=== PATIENT | female | born 1960 | race American Indian/Alaskan Native ===

== ENCOUNTER 2017-01-27 10:51 | Inpatient (IN) | payer MEDICARE ==
[2017-01-27 11:35] LABS: Basophils % (Auto) 0.9 % (0.0-1.8); Eosinophils % (Auto) 2.9 % (0.0-4.3); Hematocrit 37.8 % (30.3-42.9); Hemoglobin 12.5 gm/dl (10.1-14.3); Mean Corpuscular HGB Conc 33 % (30-34); Mean Corpuscular Hemoglobin 28 pg (28-32); Mean Corpuscular Volume 85 fl (79-97); Platelet Count 163 K/mm3 (140-440); Red Blood Count 4.47 M/mm3 (3.65-5.03); Red Cell Distribution Width 12.9 % (13.2-15.2); White Blood Count 5.6 K/mm3 (4.5-11.0)
[2017-01-27 11:50] LABS: Anion Gap 16 mmol/L; BUN/Creatinine Ratio 17.14; Blood Urea Nitrogen 12 mg/dL (7-17); Calcium 9.1 mg/dL (8.4-10.2); Carbon Dioxide 26 mmol/L (22-30); Chloride 105.7 mmol/L (98-107); Glucose 80 mg/dL (65-100); Potassium 3.6 mmol/L (3.6-5.0); Sodium 144 mmol/L (137-145)
[2017-01-27 12:02] LABS: Bacteria,Urine 1+ /HPF (Negative); Bilirubin,Urine NEG (Negative); Blood,Urine LG (Negative); Ketones,Urine NEG (Negative); Leukocyte Esterase,Urine LG (Negative); Mucus,Urine FEW /HPF; Nitrite,Urine NEG (Negative); Urobilinogen,Urine < 2.0 mg/dL (<2.0)
[2017-01-27 12:05] LABS: RBC,Urine > 182.0 /HPF (0.0-6.0); WBC,Urine > 182.0 /HPF (0.0-6.0)
--- NOTE | 2017-01-27 15:00 | Emergency Department Report ---
ED General Adult HPI - General Chief complaint: Chest Pain Stated complaint: CHEST PAIN / BLOOD IN URINE / Time Seen by Provider: 01/27/17 12:49 Source: patient Mode of arrival: Ambulatory Limitations: No Limitations - History of Present Illness Initial comments: According to the triage note the patient has chest pain shortness breath sweats and nausea. She's had symptoms intermittently for one week according to triage. Actually she states that she's had symptoms longer. This morning she had an episode lasting for greater than 1 hour which was pressure-like associated with right arm numbness. Patient states that she not unusually has arm numbness associated with chest pain. She states that she has 2 brothers that had coronary artery disease. She smokes "[employer]". He does not admit any substance abuse. She states that she has never been worked up for coronary artery disease or admitted for chest pain. -: week(s), month(s) Location: chest Radiation: other (associated with right arm numbness) Quality: other (tightness) Consistency: now resolved Improves with: none Worsens with: none Associated Symptoms: nausea/vomiting, shortness of breath - Related Data Previous Rx's Medication Instructions Recorded Last Taken Type Amoxicillin/K Clav Tab [Augmentin] 875 tab PO BID #20 tablet 07/16/13 06/29/13 Rx Fluticasone Propionate [Flonase] 2 spray NS QDAY #1 spray.susp 07/16/13 Rx Hydrocodone Bit/Acetaminophen 1 each PO Q6HR #15 tablet 07/16/13 06/29/13 Rx [Lortab 5-500 Tablet] Loratadine [Claritin] 10 mg PO DAILY #30 tablet 07/16/13 06/29/13 Rx Prednisone 40 mg PO QDAY #10 tablet 07/16/13 06/29/13 Rx Azithromycin [Zithromax Z-PENNIE] 250 mg PO DAILY #6 tablet 01/19/14 Unknown Rx HYDROcodone/APAP 5-325 [[place] 1 each PO Q6HR PRN #10 tablet 01/19/14 Unknown Rx 5/325 mg] HYDROcodone/APAP 5-325 [[place] 1 each PO Q6HR PRN #20 tablet 03/26/14 Unknown Rx 5/325 mg] Sulfamethoxazole/Trimethoprim 1 each PO BID #10 tablet 10/26/16 Unknown Rx [Bactrim DS TAB] traMADol [Ultram] 50 mg PO Q6HR PRN #14 tablet 08/23/16 Unknown Rx Allergies Allergy/AdvReac Type Severity Reaction Status Date / Time No Known Allergies Allergy Verified 03/26/14 12:35 ED Review of Systems ROS: Stated complaint: CHEST PAIN / BLOOD IN URINE / Other details as noted in HPI Constitutional: denies: chills, fever Eyes: denies: eye pain, eye discharge, vision change ENT: denies: ear pain, throat pain Respiratory: shortness of breath. denies: cough, wheezing Cardiovascular: chest pain. denies: palpitations Endocrine: no symptoms reported Gastrointestinal: denies: abdominal pain, nausea, diarrhea Genitourinary: dysuria, hematuria. denies: urgency, discharge Musculoskeletal: denies: back pain, joint swelling, arthralgia Skin: denies: rash, lesions Neurological: denies: headache, weakness, paresthesias Psychiatric: denies: anxiety, depression Hematological/Lymphatic: denies: easy bleeding, easy bruising ED Past Medical Hx - Past Medical History Previous Medical History?: Yes Hx Psychiatric Treatment: Yes Additional medical history: PTSD. depression. schizophrenia. UTI - Surgical History Past Surgical History?: Yes Additional Surgical History: colon biospy, laser eye surgery. ectopic - Social History Smoking Status: Current Every Day Smoker Substance Use Type: None - Medications Home Medications: Home Medications Medication Instructions Recorded Confirmed Last Taken Type Amoxicillin/K Clav Tab [Augmentin] 875 tab PO BID #20 tablet 07/16/13 01/19/14 06/29/13 Rx Fluticasone Propionate [Flonase] 2 spray NS QDAY #1 spray.susp 07/16/1306/29/13 Rx Hydrocodone Bit/Acetaminophen 1 each PO Q6HR #15 tablet 07/16/13 01/19/14 Rx [Lortab 5-500 Tablet] Loratadine [Claritin] 10 mg PO DAILY #30 tablet 07/16/13 01/19/14 06/29/13 Rx Prednisone 40 mg PO QDAY #10 tablet 07/16/13 01/19/14 06/29/13 Rx Azithromycin [Zithromax Z-PENNIE] 250 mg PO DAILY #6 tablet 01/19/14 Unknown Rx HYDROcodone/APAP 5-325 [[place] 1 each PO Q6HR PRN #10 tablet 01/19/14 Unknown Rx 5/325 mg] HYDROcodone/APAP 5-325 [[place] 1 each PO Q6HR PRN #20 tablet 03/26/14 Unknown Rx 5/325 mg] Sulfamethoxazole/Trimethoprim 1 each PO BID #10 tablet 08/23/16 Unknown Rx [Bactrim DS TAB] traMADol [Ultram] 50 mg PO Q6HR PRN #14 tablet 08/23/16 Unknown Rx ED Physical Exam - General Limitations: No Limitations General appearance: alert, in no apparent distress - Head Head exam: Present: atraumatic, normocephalic - Eye Eye exam: Present: normal appearance - ENT ENT exam: Present: normal exam, mucous membranes moist - Neck Neck exam: Present: normal inspection. Absent: tenderness, meningismus - Respiratory Respiratory exam: Present: normal lung sounds bilaterally. Absent: respiratory distress - Cardiovascular Cardiovascular Exam: Present: regular rate, normal rhythm. Absent: systolic murmur, diastolic murmur, rubs, gallop - GI/Abdominal GI/Abdominal exam: Present: soft, normal bowel sounds. Absent: distended, tenderness, guarding, rebound, rigid - Extremities Exam Extremities exam: Present: normal inspection - Back Exam Back exam: Present: normal inspection - Neurological Exam Neurological exam: Present: alert, oriented X3, CN II-XII intact. Absent: motor sensory deficit - Psychiatric Psychiatric exam: Present: normal affect, normal mood - Skin Skin exam: Present: warm, dry, intact, normal color. Absent: rash - Other Other exam information: Upper extremity are warm. Radial pulses symmetrical bilaterally. ED Course Vital Signs 01/27/17 01/27/17 01/27/17 11:03 12:30 12:48 Temperature 98.7 F 98.7 F Pulse Rate 89 79 Respiratory 20 21 Rate Blood Pressure 126/83 Blood Pressure 129/85 [Left] O2 Sat by Pulse 100 99 99 Oximetry ED Medical Decision Making - Lab Data Result diagrams: 01/27/17 11:18 01/27/17 11:18 Laboratory Results - last 24 hr 01/27/17 01/27/17 01/27/17 11:18 11:18 11:30 WBC 5.6 RBC 4.47 Hgb 12.5 Hct 37.8 MCV 85 MCH 28 MCHC 33 RDW 12.9 L Plt Count 163 Lymph % (Auto) 24.6 [place] % (Auto) 8.3 H Eos % (Auto) 2.9 Baso % (Auto) 0.9 Lymph # 1.4 [place] # 0.5 Eos # 0.2 Baso # 0.0 Seg Neutrophils % 63.3 Seg Neutrophils # 3.6 Sodium 144 Potassium 3.6 Chloride 105.7 Carbon Dioxide 26 Anion Gap 16 BUN 12 Creatinine 0.7 Estimated GFR > 60 BUN/Creatinine Ratio 17.14 Glucose 80 Calcium 9.1 Troponin T < 0.010 Urine Color Yellow Urine Turbidity Cloudy Urine pH 6.0 Ur Specific [place] 1.013 Urine Protein 30 mg/dl Urine Glucose (UA) Neg Urine Ketones Neg Urine Blood Lg Urine Nitrite Neg Urine Bilirubin Neg Urine Urobilinogen < 2.0 Ur Leukocyte Esterase Lg Urine WBC (Auto) > 182.0 H Urine RBC (Auto) > 182.0 U Epithel Cells (Auto) < 1.0 Urine Bacteria (Auto) 1+ Urine WBC Clumps 3+ Urine Mucus Few - EKG Data -: EKG Interpreted by Me EKG shows normal: sinus rhythm, axis, intervals, QRS complexes, ST-T waves Rate: normal - EKG Data Interpretation: no acute changes Critical care attestation.: If time is entered above; I have spent that time in minutes in the direct care of this critically ill patient, excluding procedure time. ED Disposition Clinical Impression: Acute cystitis with hematuria Chest pain Qualifiers: Chest pain type: unspecified Qualified Code(s): R07.9 - Chest pain, unspecified Disposition: OP ADMITTED IP TO THIS HOSP Is pt being admited?: Yes Does the pt Need Aspirin: Yes Condition: Stable Instructions: Chest Pain (ED) Time of Disposition: 15:08
[2017-01-27] MEDS ORDERED: ASPIRIN PO ONE (15:03)
[2017-01-27] MEDS ORDERED: ROCEPHIN/NS 1 GM/50 ML 1 GM/50 ML BAG IV ONE (15:03)
--- NOTE | 2017-01-27 15:54 | History and Physical Report ---
History of Present Illness Chief complaint: chest Pain, History of present illness: 56 YO Female with PTSD, Depression, Schizophrenia, Nicotine Dependence, presents to ED for evaluation. Pt states that she has been experiencing pain in her chest. Pain is 5/10, substernal, associated with right arm numbness, intermittent, and lasts for minutes to several hours daily for the past week. Pt denies fever, chills, palpitations, pain with exertion, or relief of chest pain with rest, association with meals. Pt denies prolonged travel/immobility, individual/family history of DVT/PE. Pt also complains of right calf "cramping" that began during physical exam. Past History Past Medical History: other (PTSD, Depression, Schizophrenia Nicotine Dependence ) Past Surgical History: No surgical history, Other (reviewed) Social history: single. denies: smoking, alcohol abuse, prescription drug abuse Family history: hypertension Medications and Allergies Allergies Allergy/AdvReac Type Severity Reaction Status Date / Time No Known Allergies Allergy Verified 03/26/14 12:35 Home Medications Medication Instructions Recorded Confirmed Last Taken Type Amoxicillin/K Clav Tab [Augmentin] 875 tab PO BID #20 tablet 07/16/13 01/19/14 06/29/13 Rx Fluticasone Propionate [Flonase] 2 spray NS QDAY #1 spray.susp 07/16/1306/29/13 Rx Hydrocodone Bit/Acetaminophen 1 each PO Q6HR #15 tablet 07/16/13 01/19/14 Rx [Lortab 5-500 Tablet] Loratadine [Claritin] 10 mg PO DAILY #30 tablet 07/16/13 01/19/14 06/29/13 Rx Prednisone 40 mg PO QDAY #10 tablet 07/16/13 01/19/14 06/29/13 Rx Azithromycin [Zithromax Z-PENNIE] 250 mg PO DAILY #6 tablet 01/19/14 Unknown Rx HYDROcodone/APAP 5-325 [[place] 1 each PO Q6HR PRN #10 tablet 01/19/14 Unknown Rx 5/325 mg] HYDROcodone/APAP 5-325 [[place] 1 each PO Q6HR PRN #20 tablet 03/26/14 Unknown Rx 5/325 mg] Sulfamethoxazole/Trimethoprim 1 each PO BID #10 tablet 08/23/16 Unknown Rx [Bactrim DS TAB] traMADol [Ultram] 50 mg PO Q6HR PRN #14 tablet 08/23/16 Unknown Rx Review of Systems All systems: negative Cardiovascular: chest pain Musculoskeletal: other (calf pain) Exam - Constitutional Vitals: Temp Pulse Resp BP Pulse Ox 98.7 F 79 21 129/85 99 01/27/17 12:30 01/27/17 12:30 01/27/17 12:30 01/27/17 12:30 01/27/17 12:48 General appearance: Present: no acute distress, well-nourished - EENT Eyes: Present: PERRL ENT: hearing intact, clear oral mucosa - Neck Neck: Present: supple, normal ROM - Respiratory Respiratory effort: normal Respiratory: bilateral: CTA - Cardiovascular Heart Sounds: Present: S1 & S2. Absent: rub, click - Extremities Extremities: pulses symmetrical, No edema Peripheral Pulses: within normal limits - Abdominal General gastrointestinal: Present: soft, non-tender, non-distended, normal bowel sounds Female genitourinary: Present: normal - Integumentary Integumentary: Present: clear, warm, dry - Musculoskeletal Musculoskeletal: gait normal, strength equal bilaterally - Psychiatric Psychiatric: appropriate mood/affect, intact judgment & insight - Neurologic Neurologic: CNII-XII intact, moves all extremities Results - Labs CBC & Chem 7: 01/27/17 11:18 01/27/17 11:18 Labs: Abnormal lab results 01/27/17 01/27/17 Range/Units 11:18 11:30 RDW 12.9 L (13.2-15.2) % [place] % (Auto) 8.3 H (0.0-7.3) % Urine WBC (Auto) > 182.0 H (0.0-6.0) /HPF Assessment and Plan - Patient Problems (1) Chest pain Current Visit: Yes Status: Acute Qualifiers: Chest pain type: unspecified Qualified Code(s): R07.9 - Chest pain, unspecified Plan to address problem: Chest Pain Protocol: Serial cardiac enzymes, ekg, telemetry, stress test, echo, supportive care. (2) UTI (urinary tract infection) Current Visit: Yes Status: Acute Qualifiers: Urinary tract infection type: U Hematuria presence: H Indwelling urinary catheter type: I Encounter type: E Plan to address problem: cystitis with Hematuria: IV abx, ivf, supportive care. (3) Leg pain Current Visit: Yes Status: Acute Qualifiers: Laterality: L Plan to address problem: Lower extremity duplex, d dimer, supportive care. (4) DVT prophylaxis Current Visit: Yes Status: Acute
[2017-01-27] MEDS ORDERED: ZOFRAN IV PRN (16:34)
[2017-01-27] MEDS ORDERED: DULCOLAX PR PRN (16:34)
[2017-01-27] MEDS ORDERED: MILK OF MAGNESIA PO PRN (16:34)
[2017-01-27] MEDS ORDERED: TYLENOL PO PRN (16:34)
[2017-01-27] MEDS ORDERED: SODIUM CHLORIDE FLUSH SYRINGE 10 ML IV PRN (16:39)
[2017-01-27] MEDS ORDERED: ULTRAM PO PRN (16:41)
[2017-01-27 17:23] LABS: INR 1.01 (0.87-1.13)
[2017-01-27 17:24] LABS: Partial Thromboplastin Time 28.3 Sec. (24.2-36.6)
[2017-01-27] MEDS ORDERED: NORCO 5/325 PO PRN (17:26)
[2017-01-27 17:38] LABS: Alanine Aminotransferase 23 units/L (7-56); Albumin 3.7 g/dL (3.9-5); Albumin/Globulin Ratio 1.5 %; Alkaline Phosphatase 80 units/L (35-129); Bilirubin,Total 0.2 mg/dL (0.1-1.2); Magnesium 1.8 mg/dL (1.7-2.3); Total Protein 6.1 g/dL (6.3-8.2)
[2017-01-27 17:39] LABS: Bilirubin,Direct < 0.2 mg/dL (0-0.2)
[2017-01-27] MEDS: LEVAQUIN 500MG/100ML 500 MG/100 ML BAG IV SCH (18:41)
[2017-01-27] MEDS: CLARITIN PO SCH (18:42)
[2017-01-27 19:27] LABS: Creatine Kinase MB 1.3 ng/mL (0.0-4.0)
[2017-01-27 19:28] LABS: Creatine Kinase 213 units/L (30-135)
[2017-01-28 00:19] LABS: Creatine Kinase MB 1.2 ng/mL (0.0-4.0)
[2017-01-28 00:24] LABS: Creatine Kinase 195 units/L (30-135)
[2017-01-28] MEDS ORDERED: LEXISCAN IV ONE ×2 (08:01→08:02)
--- NOTE | 2017-01-28 09:54 | XRay Report ---
Single view chest: Compared to 10/15/14. History: Hypertension. Findings: Borderline cardiomegaly. Trachea is midline. No consolidation, pneumothorax or pleural effusion. Impression: No acute cardiopulmonary findings. No significant interval change.
[2017-01-28] MEDS: CLARITIN PO SCH (10:34)
[2017-01-28] MEDS: FLONASE NS SCH (10:34)
[2017-01-28] MEDS: DELTASONE PO SCH (10:34)
--- NOTE | 2017-01-28 13:01 | Progress Note ---
Assessment and Plan Assessment and plan: 56 years old female with psychiatric disorders, admitted for chest pain and right calf pain 1. Chest pain EKG with no acute ischemic changes and cardiac enzymes negative Echo and stress test pending 2. Right calf pain D-dimer slightly elevated Doppler right lower extremity obtained and negative for DVT/SVT Electrolytes within normal limits 3. UTI UA suggestive of UTI, urine culture not obtained Already on antibiotics 4. Nicotine dependence Counseled regarding importance of quitting smoking 5. Psychiatric disorders Per chart, depression/PTSD/schizophrenia Not on any medications 6. DVT prophylaxis History Interval history: chest pain free Hospitalist Physical - Constitutional Vitals: Temp Pulse Resp BP Pulse Ox 98 F 98 H 20 145/79 98 01/28/17 05:00 01/28/17 10:25 01/28/17 05:00 01/28/17 10:25 01/28/17 10:00 General appearance: Present: no acute distress, well-nourished - EENT Eyes: Present: PERRL, EOM intact. Absent: scleral icterus, conjunctival injection - Neck Neck: Present: supple, normal ROM. Absent: masses or JVD - Respiratory Respiratory effort: normal Respiratory: bilateral: CTA, negative: rhonchi, wheezing - Cardiovascular Rhythm: other (tachycardic) Heart Sounds: Present: S1 & S2. Absent: systolic murmur - Extremities Extremities: no ischemia - Abdominal General gastrointestinal: soft, non-tender, non-distended, normal bowel sounds - Integumentary Integumentary: Present: warm, dry. Absent: jaundice, rash - Neurologic Neurologic: CNII-XII intact, no focal deficits Results - Labs CBC & Chem 7: 01/27/17 11:18 01/27/17 11:18 Labs: Laboratory Last Values WBC 5.6 K/mm3 (4.5-11.0) 01/27/17 11:18 RBC 4.47 M/mm3 (3.65-5.03) 01/27/17 11:18 Hgb 12.5 gm/dl (10.1-14.3) 01/27/17 11:18 Hct 37.8 % (30.3-42.9) 01/27/17 11:18 MCV 85 fl (79-97) 01/27/17 11:18 MCH 28 pg (28-32) 01/27/17 11:18 MCHC 33 % (30-34) 01/27/17 11:18 RDW 12.9 % (13.2-15.2) L 01/27/17 11:18 Plt Count 163 K/mm3 (140-440) 01/27/17 11:18 Lymph % (Auto) 24.6 % (13.4-35.0) 01/27/17 11:18 [place] % (Auto) 8.3 % (0.0-7.3) H 01/27/17 11:18 Eos % (Auto) 2.9 % (0.0-4.3) 01/27/17 11:18 Baso % (Auto) 0.9 % (0.0-1.8) 01/27/17 11:18 Lymph # 1.4 K/mm3 (1.2-5.4) 01/27/17 11:18 [place] # 0.5 K/mm3 (0.0-0.8) 01/27/17 11:18 Eos # 0.2 K/mm3 (0.0-0.4) 01/27/17 11:18 Baso # 0.0 K/mm3 (0.0-0.1) 01/27/17 11:18 Seg Neutrophils % 63.3 % (40.0-70.0) 01/27/17 11:18 Seg Neutrophils # 3.6 K/mm3 (1.8-7.7) 01/27/17 11:18 PT 13.2 Sec. (12.2-14.9) 01/27/17 16:42 INR 1.01 (0.87-1.13) 01/27/17 16:42 APTT 28.3 Sec. (24.2-36.6) 01/27/17 16:42 D-Dimer 243.84 ng/mlDDU (0-234) H 01/27/17 20:21 Sodium 144 mmol/L (137-145) 01/27/17 11:18 Potassium 3.6 mmol/L (3.6-5.0) 01/27/17 11:18 Chloride 105.7 mmol/L (98-107) 01/27/17 11:18 Carbon Dioxide 26 mmol/L (22-30) 01/27/17 11:18 Anion Gap 16 mmol/L 01/27/17 11:18 BUN 12 mg/dL (7-17) 01/27/17 11:18 Creatinine 0.7 mg/dL (0.7-1.2) 01/27/17 11:18 Estimated GFR > 60 ml/min 01/27/17 11:18 BUN/Creatinine Ratio 17.14 % 01/27/17 11:18 Glucose 80 mg/dL (65-100) 01/27/17 11:18 Calcium 9.1 mg/dL (8.4-10.2) 01/27/17 11:18 Magnesium 1.8 mg/dL (1.7-2.3) 01/27/17 14:19 Total Bilirubin 0.2 mg/dL (0.1-1.2) 01/27/17 14:19 Direct Bilirubin < 0.2 mg/dL (0-0.2) 01/27/17 14:19 Indirect Bilirubin 0.0 mg/dL 01/27/17 14:19 AST 23 units/L (5-40) 01/27/17 14:19 ALT 23 units/L (7-56) 01/27/17 14:19 Alkaline Phosphatase 80 units/L (35-129) 01/27/17 14:19 Total Creatine Kinase 195 units/L (30-135) H 01/27/17 22:59 CK-MB (CK-2) 1.2 ng/mL (0.0-4.0) 01/27/17 22:59 CK-MB (CK-2) Rel Index 0.6 (0-4) 01/27/17 22:59 Troponin T < 0.010 ng/mL (0.00-0.029) 01/27/17 22:59 NT-Pro-B Natriuret Pep 274.8 pg/mL (0-900) 01/27/17 14:19 Total Protein 6.1 g/dL (6.3-8.2) L 01/27/17 14:19 Albumin 3.7 g/dL (3.9-5) L 01/27/17 14:19 Albumin/Globulin Ratio 1.5 % 01/27/17 14:19 Urine Color Yellow (Yellow) 01/27/17 11:30 Urine Turbidity Cloudy (Clear) 01/27/17 11:30 Urine pH 6.0 (5.0-7.0) 01/27/17 11:30 Ur Specific [place] 1.013 (1.003-1.030) 01/27/17 11:30 Urine Protein 30 mg/dl mg/dL (Negative) 01/27/17 11:30 Urine Glucose (UA) Neg mg/dL (Negative) 01/27/17 11:30 Urine Ketones Neg mg/dL (Negative) 01/27/17 11:30 Urine Blood Lg (Negative) 01/27/17 11:30 Urine Nitrite Neg (Negative) 01/27/17 11:30 Urine Bilirubin Neg (Negative) 01/27/17 11:30 Urine Urobilinogen < 2.0 mg/dL (<2.0) 01/27/17 11:30 Ur Leukocyte Esterase Lg (Negative) 01/27/17 11:30 Urine WBC (Auto) > 182.0 /HPF (0.0-6.0) H 01/27/17 11:30 Urine RBC (Auto) > 182.0 /HPF (0.0-6.0) 01/27/17 11:30 U Epithel Cells (Auto) < 1.0 /HPF (0-13.0) 01/27/17 11:30 Urine Bacteria (Auto) 1+ /HPF (Negative) 01/27/17 11:30 Urine WBC Clumps 3+ /HPF 01/27/17 11:30 Urine Mucus Few /HPF 01/27/17 11:30
[2017-01-28] MEDS: LEVAQUIN 500MG/100ML 500 MG/100 ML BAG IV SCH (18:53)
--- NOTE | 2017-01-29 07:33 | Vascular Lab Report ---
Right Lower Extremity Venous Duplex Study: Reason for Exam: Right leg pain. Comments on the Right: All veins visualized are freely compressible without evidence of internal echogenicity. Flow is spontaneous and phasic throughout. No evidence of acute or chronic thrombus is seen in any of the vessels visualized. Comments on the Left: A limited duplex study was done of the proximal veins of the left lower extremity. All veins visualized are freely compressible without evidence of internal echogenicity. Flow is spontaneous and phasic throughout. No evidence of acute or chronic thrombus is seen in any of the vessels visualized. Impression: No evidence of acute or chronic deep venous thrombosis in the right lower extremity.
[2017-01-29] MEDS: CLARITIN PO SCH (09:51)
[2017-01-29] MEDS: DELTASONE PO SCH (09:51)
[2017-01-29] MEDS: FLONASE NS SCH (09:52)
[2017-01-29 10:05] VITALS: BP 121/75
--- NOTE | 2017-01-29 13:52 | Discharge Summary ---
Providers - Providers Date of Admission: 01/27/17 16:34 Date of discharge: 01/29/17 Attending physician: THOMAS WHITEHEAD 01/27/17 Consult to Cardiac Rehabilitation [CONS] Routine Reason For Exam: Phase I Primary care physician: NEHA ISAACS MD Hospitalization Condition: Stable Hospital course: 56 years old female with psychiatric disorders, admitted for chest pain and right calf pain 1. Chest pain, msk related EKG with no acute ischemic changes and cardiac enzymes negative; Stress test negative 2. Right calf pain D-dimer slightly elevated Doppler right lower extremity obtained and negative for DVT/SVT Electrolytes within normal limits 3. UTI UA suggestive of UTI, urine culture not obtained, no symptoms. Already on antibiotics 4. Nicotine dependence Counseled regarding importance of quitting smoking 5. Psychiatric disorders Per chart, depression/PTSD/schizophrenia Not on any medications 6. DVT prophylaxis Disposition: DISCHARGED TO HOME OR SELFCARE Time spent for discharge: 33 minutes Core Measure Documentation - Palliative Care Palliative Care/ Comfort Measures: Not Applicable - Core Measures Any of the following diagnoses?: none - VTE Discharge Requirements Deep Vein Thrombosis/Pulmonary Embolism Present on Admission: No Has pt received <5 days of overlap therapy or INR<2.0: No Anticoagulant overlap therapy prescribed at discharge: No Contraindication No Overlap Therapy order at DC: Not Indicated Exam - Physical Exam Narrative exam: GEN: WDWN, NAD, AWAKE, ALERT, ORIENTATED HEENT: NCAT, PERRL, EOMI, OP CLEAR NECK: SUPPLE, NO THYROMEGALY, NO JVD, NO LAD CVS: RRR, NORMAL S1S2 LUNGS/CHEST: CTA B, NORMAL CHEST EXPANSION B, GOOD AIR ENTRY B, reproducible chest wall tenderness ABD: SOFT NTND, GBS, NO REBOUND OR GUARDING EXT/SKIN: NO SIGNIFICANT EDEMA OR RASH MSK: FROM X 4 EXTREMITIES NEURO: CN 2-12 GROSSLY INTACT, NO new FOCAL DEFICITS PSY: CALM - Constitutional Vitals: Temp Pulse Resp BP Pulse Ox 97.8 F 76 18 121/75 98 01/29/17 09:00 01/29/17 09:00 01/29/17 09:00 01/29/17 09:00 01/29/17 09:00 Plan Activity: advance as tolerated (no strenous activites until cleared by PCP. ) Diet: low salt Follow up with: PRIMARY CAREMD [Primary Care Provider] - 3-5 Days Forms: Work/School Release Form
[2017-01-29] MEDS ORDERED: LEVAQUIN PO SCH (18:00)
== END 2017-01-29 14:00 | disposition home or self-care (01) | DRG 690 ==
LOC: ED 10:51 → 4A 16:34
PROVIDERS: ADMIT Internal Medicine; ATTEND Internal Medicine
DX: N30.90 Cystitis, unspecified without hematuria (principal); R07.89 Other chest pain; M79.604 Pain in right leg; F32.9 Major depressive disorder, single episode, unspecified; F43.10 Post-traumatic stress disorder, unspecified; F20.9 Schizophrenia, unspecified; F17.210 Nicotine dependence, cigarettes, uncomplicated; Z87.440 Personal history of urinary (tract) infections
CPT/HCPCS: 36415; 71010; 78452; 80048; 80074; 81001; 82550; 82553; 83735; 83880; 84484; 85025; 85379; 85610; 85730; 93005; 93010; 93017; 93306; 96365; A9502; J0696; J1956; J2785; J7512

== ENCOUNTER 2017-04-28 02:22 | Emergency (ER) | payer MEDICARE ==
[2017-04-28 03:41] LABS: Bilirubin,Urine NEG (Negative); Blood,Urine NEG (Negative); Ketones,Urine NEG (Negative); Leukocyte Esterase,Urine TR (Negative); Nitrite,Urine NEG (Negative); Protein,Urine <15 mg/dL mg/dL (Negative); Urobilinogen,Urine < 2.0 mg/dL (<2.0)
[2017-04-28 04:01] LABS: Hematocrit 36.9 % (30.3-42.9); Hemoglobin 12.1 gm/dl (10.1-14.3); Mean Corpuscular HGB Conc 33 % (30-34); Mean Corpuscular Hemoglobin 28 pg (28-32); Mean Corpuscular Volume 86 fl (79-97); Platelet Count 151 K/mm3 (140-440); Red Blood Count 4.31 M/mm3 (3.65-5.03); Red Cell Distribution Width 13.7 % (13.2-15.2); White Blood Count 4.6 K/mm3 (4.5-11.0)
[2017-04-28 04:15] LABS: Alanine Aminotransferase 22 units/L (7-56); Albumin 3.8 g/dL (3.9-5); Albumin/Globulin Ratio 1.3 %; Alkaline Phosphatase 77 units/L (35-129); Anion Gap 13 mmol/L; Blood Urea Nitrogen 14 mg/dL (7-17); Calcium 8.5 mg/dL (8.4-10.2); Carbon Dioxide 29 mmol/L (22-30); Chloride 102.4 mmol/L (98-107); Glucose 114 mg/dL (65-100); Lipase 33 units/L (13-60); Potassium 3.7 mmol/L (3.6-5.0); Sodium 141 mmol/L (137-145); Total Protein 6.7 g/dL (6.3-8.2)
[2017-04-28 05:43] LABS: Blastocytes % (Manual) 0 %
[2017-04-28 05:44] LABS: Anisocytosis Few; Diff Status Complete; Microcytosis Few
--- NOTE | 2017-04-28 07:58 | Emergency Department Report ---
ED General Adult HPI - General Chief complaint: Abdominal Pain Stated complaint: PELVIC PAIN Time Seen by Provider: 04/28/17 07:34 Source: patient Mode of arrival: Ambulatory Limitations: No Limitations - History of Present Illness Initial comments: Patient comes in with multiple somatic complaints. She states she has abdominal pain pelvic pain headache nausea vomiting sometimes sweats at night that she had a discharge she is some [id number] medication. She denies being on any recent antibiotics. She's had no recent vomiting. She denied diarrhea. She is afebrile at this time. At the time I counted the patient sleeping and really will not wake up more than a few seconds to talk to this examiner. She is in no distress. She has a history of schizophrenia. She appears to be presenting with multiple non-emergent complaints. -: week(s) Location: head, abdomen, pelvis Severity scale (0 -10): 3 Quality: other (does not describe) Consistency: now resolved Improves with: none Worsens with: none Associated Symptoms: denies other symptoms (except as above indicated) - Related Data Previous Rx's Medication Instructions Recorded Last Taken Type Amoxicillin/K Clav Tab [Augmentin 875 tab PO BID #20 tablet 07/16/13 06/29/13 Rx 875MG TAB] Fluticasone Propionate [Flonase] 2 spray NS QDAY #1 spray.susp 07/16/13 Rx Hydrocodone Bit/Acetaminophen 1 each PO Q6HR #15 tablet 07/16/13 06/29/13 Rx [Lortab 5-500 Tablet] Loratadine [Claritin] 10 mg PO DAILY #30 tablet 07/16/13 06/29/13 Rx Prednisone 40 mg PO QDAY #10 tablet 07/16/13 06/29/13 Rx Azithromycin [Zithromax Z-PENNIE] 250 mg PO DAILY #6 tablet 01/19/14 Unknown Rx HYDROcodone/APAP 5-325 [[place] 1 each PO Q6HR PRN #10 tablet 01/19/14 Unknown Rx 5-325 mg TAB] HYDROcodone/APAP 5-325 [[place] 1 each PO Q6HR PRN #20 tablet 03/26/14 Unknown Rx 5-325 mg TAB] Sulfamethoxazole/Trimethoprim 1 each PO BID #10 tablet 08/23/16 Unknown Rx [Bactrim DS TAB] traMADol [Ultram 50 MG tab] 50 mg PO Q6HR PRN #14 tablet 08/23/16 Unknown Rx metroNIDAZOLE [Metrogel 1%] 1 applicatio TP QDAY #60 gel..gram. 04/28/17 Unknown Rx traMADol [Ultram] 50 mg PO Q6HR PRN #10 tablet 04/28/17 Unknown Rx Allergies Allergy/AdvReac Type Severity Reaction Status Date / Time No Known Allergies Allergy Verified 03/26/14 12:35 ED Review of Systems ROS: Stated complaint: PELVIC PAIN Other details as noted in HPI Constitutional: denies: chills, fever Eyes: denies: eye pain, eye discharge, vision change ENT: denies: ear pain, throat pain Respiratory: denies: cough, shortness of breath, wheezing Cardiovascular: denies: chest pain, palpitations Endocrine: no symptoms reported Gastrointestinal: abdominal pain. denies: nausea, diarrhea Genitourinary: as per HPI. denies: urgency, dysuria Musculoskeletal: denies: back pain, joint swelling, arthralgia Skin: denies: rash, lesions Neurological: headache. denies: weakness, paresthesias Psychiatric: denies: anxiety, depression Hematological/Lymphatic: denies: easy bleeding, easy bruising ED Past Medical Hx - Past Medical History Previous Medical History?: Yes Hx Congestive Heart Failure: No Hx Diabetes: No Hx Psychiatric Treatment: Yes Hx Asthma: No Hx COPD: No Additional medical history: PTSD. depression. schizophrenia. UTI - Surgical History Past Surgical History?: Yes Additional Surgical History: colon biospy, laser eye surgery. ectopic - Social History Smoking Status: Current Every Day Smoker Substance Use Type: Alcohol - Medications Home Medications: Home Medications Medication Instructions Recorded Confirmed Last Taken Type Amoxicillin/K Clav Tab [Augmentin 875 tab PO BID #20 tablet 07/16/13 01/19/14 Rx 875MG TAB] Fluticasone Propionate [Flonase] 2 spray NS QDAY #1 spray.susp 07/16/1306/29/13 Rx Hydrocodone Bit/Acetaminophen 1 each PO Q6HR #15 tablet 07/16/13 01/19/14 Rx [Lortab 5-500 Tablet] Loratadine [Claritin] 10 mg PO DAILY #30 tablet 07/16/13 01/19/14 06/29/13 Rx Prednisone 40 mg PO QDAY #10 tablet 07/16/13 01/19/14 06/29/13 Rx Azithromycin [Zithromax Z-PENNIE] 250 mg PO DAILY #6 tablet 01/19/14 Unknown Rx HYDROcodone/APAP 5-325 [[place] 1 each PO Q6HR PRN #10 tablet 01/19/14 Unknown Rx 5-325 mg TAB] HYDROcodone/APAP 5-325 [[place] 1 each PO Q6HR PRN #20 tablet 03/26/14 Unknown Rx 5-325 mg TAB] Sulfamethoxazole/Trimethoprim 1 each PO BID #10 tablet 08/23/16 Unknown Rx [Bactrim DS TAB] traMADol [Ultram 50 MG tab] 50 mg PO Q6HR PRN #14 tablet 08/23/16 Unknown Rx metroNIDAZOLE [Metrogel 1%] 1 applicatio TP QDAY #60 gel..gram. 04/28/17 Unknown Rx traMADol [Ultram] 50 mg PO Q6HR PRN #10 tablet 04/28/17 Unknown Rx ED Physical Exam - General Limitations: No Limitations General appearance: alert, in no apparent distress - Head Head exam: Present: atraumatic, normocephalic - Eye Eye exam: Present: normal appearance. Absent: scleral icterus - ENT ENT exam: Present: mucous membranes moist - Neck Neck exam: Present: normal inspection - Respiratory Respiratory exam: Present: normal lung sounds bilaterally. Absent: respiratory distress - Cardiovascular Cardiovascular Exam: Present: regular rate, normal rhythm. Absent: systolic murmur, diastolic murmur, rubs, gallop - GI/Abdominal GI/Abdominal exam: Present: soft, normal bowel sounds. Absent: distended, tenderness, guarding, rebound, rigid, organomegaly, mass, bruit, pulsatile mass , hernia - Extremities Exam Extremities exam: Present: normal inspection - Back Exam Back exam: Present: normal inspection - Neurological Exam Neurological exam: Present: alert, oriented X3, CN II-XII intact. Absent: motor sensory deficit - Psychiatric Psychiatric exam: Present: normal affect, normal mood - Skin Skin exam: Present: warm, dry, intact, normal color. Absent: rash ED Course Vital Signs 04/28/17 02:55 Temperature 98.5 F Pulse Rate 75 Respiratory 14 Rate Blood Pressure 136/94 [Right] O2 Sat by Pulse 99 Oximetry ED Medical Decision Making - Lab Data Result diagrams: 04/28/17 03:33 04/28/17 03:33 Laboratory Results - last 24 hr 04/28/17 04/28/17 04/28/17 03:13 03:33 03:33 WBC 4.6 RBC 4.31 Hgb 12.1 Hct 36.9 MCV 86 MCH 28 MCHC 33 RDW 13.7 Plt Count 151 Add Manual Diff Complete Total Counted 100 Seg Neutrophils % Automobile Sales Representative Seg Neuts % (Manual) 40.0 Band Neutrophils % 0 Lymphocytes % (Manual) 44.0 H Reactive Lymphs % (Man) 0 Monocytes % (Manual) 10.0 H Eosinophils % (Manual) 5.0 H Basophils % (Manual) 1.0 Metamyelocytes % 0 Myelocytes % 0 Promyelocytes % 0 Blast Cells % 0 Nucleated RBC % Not Reportable Seg Neutrophils # Man 1.8 Band Neutrophils # 0.0 Lymphocytes # (Manual) 2.0 Abs React Lymphs (Man) 0.0 Monocytes # (Manual) 0.5 Eosinophils # (Manual) 0.2 Basophils # (Manual) 0.0 Metamyelocytes # 0.0 Myelocytes # 0.0 Promyelocytes # 0.0 Blast Cells # 0.0 WBC Morphology Not Reportable Hypersegmented Neuts Not Reportable Hyposegmented Neuts Not Reportable Hypogranular Neuts Not Reportable Smudge Cells Not Reportable Toxic Granulation Not Reportable Toxic Vacuolation Not Reportable Dohle Bodies Not Reportable Pelger-Huet Anomaly Not Reportable Sandee Rods Not Reportable Platelet Estimate Appears normal Clumped Platelets Not Reportable Plt Clumps, EDTA Not Reportable Large Platelets Not Reportable Giant Platelets Not Reportable Platelet Satelliting Not Reportable Plt Morphology Comment Not Reportable RBC Morphology Not Reportable Dimorphic RBCs Not Reportable Polychromasia Not Reportable Hypochromasia Not Reportable Poikilocytosis Not Reportable Anisocytosis Few Microcytosis Few Macrocytosis Not Reportable Spherocytes Not Reportable Pappenheimer Bodies Not Reportable Sickle Cells Not Reportable Target Cells Not Reportable Tear Drop Cells Not Reportable Ovalocytes Not Reportable Helmet Cells Not Reportable [place] Bodies Not Reportable [place] Rings Not Reportable [place] Cells Not Reportable Bite Cells Not Reportable Crenated Cell Not Reportable Elliptocytes Not Reportable Acanthocytes (Spur) Not Reportable Rouleaux Not Reportable Hemoglobin C Crystals Not Reportable Schistocytes Not Reportable Malaria parasites Not Reportable Lam Bodies Not Reportable Hem Pathologist Commnt No Sodium 141 Potassium 3.7 Chloride 102.4 Carbon Dioxide 29 Anion Gap 13 BUN 14 Creatinine 0.7 Estimated GFR > 60 BUN/Creatinine Ratio 20.00 Glucose 114 H Calcium 8.5 Total Bilirubin 0.30 AST 31 ALT 22 Alkaline Phosphatase 77 Total Protein 6.7 Albumin 3.8 L Albumin/Globulin Ratio 1.3 Lipase 33 Urine Color Straw Urine Turbidity Clear Urine pH 6.0 Ur Specific [place] 1.011 Urine Protein <15 mg/dl Urine Glucose (UA) Neg Urine Ketones Neg Urine Blood Neg Urine Nitrite Neg Urine Bilirubin Neg Urine Urobilinogen < 2.0 Ur Leukocyte Esterase Tr Urine WBC (Auto) 1.0 Urine RBC (Auto) 6.0 U Epithel Cells (Auto) 5.0 Critical care attestation.: If time is entered above; I have spent that time in minutes in the direct care of this critically ill patient, excluding procedure time. ED Disposition Clinical Impression: Headache Qualifiers: Headache type: unspecified Headache chronicity pattern: chronic headache Intractability: not intractable Qualified Code(s): R51 - Headache Abdominal pain Qualifiers: Abdominal location: unspecified location Qualified Code(s): R10.9 - Unspecified abdominal pain Vaginitis Qualifiers: Chronicity: chronic Qualified Code(s): N76.1 - Subacute and chronic vaginitis Schizophrenia Qualifiers: Schizophrenia type: other Qualified Code(s): F20.89 - Other schizophrenia; F20.8 - Other schizophrenia Disposition: DC-01 TO HOME OR SELFCARE Is pt being admited?: No Does the pt Need Aspirin: No Condition: Stable Instructions: Abdominal Pain (ED), Acute Headache (ED) Additional Instructions: See referrals for chronic care. Rx as directed. Return to the emergency department any acute change or problem. Prescriptions: metroNIDAZOLE [Metrogel 1%] 1 applicatio TP QDAY #60 gel..gram. traMADol [Ultram] 50 mg PO Q6HR PRN #10 tablet PRN Reason: Pain Referrals: PRIMARY MD SHITAL [Primary Care Provider] - 3-5 Days [facility] [Outside] - 3-5 Days [facility] [Provider Group] - 3-5 Days NATTY PARIKH MD [Staff Physician] - 3-5 Days Time of Disposition: 07:59
[2017-04-28] MEDS ORDERED: ZITHROMAX PO ONE (08:00)
[2017-04-28 08:23] VITALS: BP 131/68
== END 2017-04-28 08:30 | disposition home or self-care (01) ==
LOC: ED 02:22
DX: N76.1 Subacute and chronic vaginitis (principal); F20.89 Other schizophrenia; R51 Headache; R10.9 Unspecified abdominal pain; F17.200 Nicotine dependence, unspecified, uncomplicated
CPT/HCPCS: 36415; 80053; 81001; 83690; 85007; 85025; 99283

== ENCOUNTER 2017-05-23 16:59 | Emergency (ER) | payer MEDICARE ==
--- NOTE | 2017-05-23 21:23 | Emergency Department Report ---
Entered by GISELLE CORTEZ, acting as scribe for SUJEY BEYER PA. ED Eye Problem HPI - General Chief complaint: Eye Problems Stated complaint: EYE SWELLING UNDER EYE Time Seen by Provider: 05/23/17 20:31 Source: patient Mode of arrival: Ambulatory Limitations: No Limitations - History of Present Illness Initial comments: 57 y/o female presents to the ED c/o insect bite jeet to left side of nose that occurred last night. Associated symptoms include itching but she denies nausea, vomiting, fever, chills, vision changes, eye pain, redness, swelling and discharge. Patient states she had glaucoma surgery last year in June. No alleviating or aggravating factors. NKDA. MARTIN chief complaint: other (insect bite to left side of nose) -: Last night Onset Description: sudden Location: left eye Place: home If Injury: none Eye Symptoms: itching Severity: mild, severe If Pain, Quality: sharp Consistency: constant Associated Symptoms: other (insect bite jeet left side nose, itching, denies: fever, chills, vision changes, eye discharge, pain, redness, swelling). denies : nausea/vomiting Treatments Prior to Arrival: none - Related Data Previous Rx's Medication Instructions Recorded Last Taken Type Amoxicillin/K Clav Tab [Augmentin 875 tab PO BID #20 tablet 07/16/13 06/29/13 Rx 875MG TAB] Fluticasone Propionate [Flonase] 2 spray NS QDAY #1 spray.susp 07/16/13 Rx Hydrocodone Bit/Acetaminophen 1 each PO Q6HR #15 tablet 07/16/13 06/29/13 Rx [Lortab 5-500 Tablet] Loratadine [Claritin] 10 mg PO DAILY #30 tablet 07/16/13 06/29/13 Rx Prednisone 40 mg PO QDAY #10 tablet 07/16/13 06/29/13 Rx Azithromycin [Zithromax Z-PENNIE] 250 mg PO DAILY #6 tablet 01/19/14 Unknown Rx HYDROcodone/APAP 5-325 [[place] 1 each PO Q6HR PRN #10 tablet 01/19/14 Unknown Rx 5-325 mg TAB] HYDROcodone/APAP 5-325 [[place] 1 each PO Q6HR PRN #20 tablet 03/26/14 Unknown Rx 5-325 mg TAB] Sulfamethoxazole/Trimethoprim 1 each PO BID #10 tablet 08/23/16 Unknown Rx [Bactrim DS TAB] traMADol [Ultram 50 MG tab] 50 mg PO Q6HR PRN #14 tablet 08/23/16 Unknown Rx metroNIDAZOLE [Metrogel 1%] 1 applicatio TP QDAY #60 gel..gram. 04/28/17 Unknown Rx traMADol [Ultram] 50 mg PO Q6HR PRN #10 tablet 04/28/17 Unknown Rx Triamcinolone 0.025% (Nf) [Kenalog 1 applic TP TID #1 tube 05/23/17 Unknown Rx 0.025% OINT] diphenhydrAMINE [Benadryl CAP] 25 mg PO QHS #30 capsule 05/23/17 Unknown Rx Allergies Allergy/AdvReac Type Severity Reaction Status Date / Time No Known Allergies Allergy Verified 05/23/17 17:16 ED Review of Systems Comment: All other systems reviewed and negative Constitutional: denies: chills, fever Eyes: denies: eye pain, eye discharge, vision change, other (redness, swelling) Gastrointestinal: denies: nausea, vomiting Skin: other (insect bite jeet left side nose, itching) ED Past Medical Hx - Past Medical History Previous Medical History?: Yes Hx Congestive Heart Failure: No Hx Diabetes: No Hx Psychiatric Treatment: Yes Hx Asthma: No Hx COPD: No Additional medical history: PTSD. depression. schizophrenia. UTI - Surgical History Past Surgical History?: Yes Additional Surgical History: colon biospy, laser eye surgery. ectopic - Social History Smoking Status: Current Every Day Smoker - Medications Home Medications: Home Medications Medication Instructions Recorded Confirmed Last Taken Type Amoxicillin/K Clav Tab [Augmentin 875 tab PO BID #20 tablet 07/16/13 01/19/14 Rx 875MG TAB] Fluticasone Propionate [Flonase] 2 spray NS QDAY #1 spray.susp 07/16/1306/29/13 Rx Hydrocodone Bit/Acetaminophen 1 each PO Q6HR #15 tablet 07/16/13 01/19/14 Rx [Lortab 5-500 Tablet] Loratadine [Claritin] 10 mg PO DAILY #30 tablet 07/16/13 01/19/14 06/29/13 Rx Prednisone 40 mg PO QDAY #10 tablet 07/16/13 01/19/14 06/29/13 Rx Azithromycin [Zithromax Z-PENNIE] 250 mg PO DAILY #6 tablet 01/19/14 Unknown Rx HYDROcodone/APAP 5-325 [[place] 1 each PO Q6HR PRN #10 tablet 01/19/14 Unknown Rx 5-325 mg TAB] HYDROcodone/APAP 5-325 [[place] 1 each PO Q6HR PRN #20 tablet 03/26/14 Unknown Rx 5-325 mg TAB] Sulfamethoxazole/Trimethoprim 1 each PO BID #10 tablet 08/23/16 Unknown Rx [Bactrim DS TAB] traMADol [Ultram 50 MG tab] 50 mg PO Q6HR PRN #14 tablet 08/23/16 Unknown Rx metroNIDAZOLE [Metrogel 1%] 1 applicatio TP QDAY #60 gel..gram. 04/28/17 Unknown Rx traMADol [Ultram] 50 mg PO Q6HR PRN #10 tablet 04/28/17 Unknown Rx Triamcinolone 0.025% (Nf) [[place]al[place] 1 applic TP TID #1 tube 05/23/17 Unknown Rx 0.025% OINT] diphenhydrAMINE [Benadryl CAP] 25 mg PO QHS #30 capsule 05/23/17 Unknown Rx ED Physical Exam - General Limitations: No Limitations General appearance: alert, in no apparent distress - Head Head exam: Present: atraumatic, normocephalic, normal inspection - Eye Eye exam: Present: normal appearance, PERRL, EOMI. Absent: scleral icterus, conjunctival injection, nystagmus, periorbital swelling, periorbital tenderness Pupils: Present: normal accommodation - ENT ENT exam: Present: normal exam, normal orophraynx, mucous membranes moist, TM's normal bilaterally, normal external ear exam - Neck Neck exam: Present: normal inspection, full ROM. Absent: tenderness, meningismus, lymphadenopathy, thyromegaly - Respiratory Respiratory exam: Present: normal lung sounds bilaterally. Absent: respiratory distress, wheezes, rales, rhonchi, stridor, chest wall tenderness, accessory muscle use, decreased breath sounds, prolonged expiratory - Cardiovascular Cardiovascular Exam: Present: regular rate, normal rhythm, normal heart sounds. Absent: bradycardia, tachycardia, irregular rhythm, systolic murmur, diastolic murmur, rubs, gallop - GI/Abdominal GI/Abdominal exam: Present: soft, normal bowel sounds. Absent: distended, tenderness, guarding, rebound, rigid, diminished bowel sounds - Extremities Exam Extremities exam: Present: normal inspection, full ROM, normal capillary refill. Absent: tenderness, pedal edema, joint swelling, calf tenderness - Back Exam Back exam: Present: normal inspection, full ROM. Absent: tenderness, CVA tenderness (R), CVA tenderness (L), muscle spasm, paraspinal tenderness, vertebral tenderness, rash noted - Neurological Exam Neurological exam: Present: alert, oriented X3, CN II-XII intact, reflexes normal - Psychiatric Psychiatric exam: Present: normal affect, normal mood - Skin Skin exam: Present: warm, dry, normal color, other (insect bite jeet to left side of nose not affecting eyes, erythematous, no swelling ) ED Course Vital Signs 05/23/17 17:16 Temperature 98.6 F Pulse Rate 70 Respiratory 18 Rate Blood Pressure 115/73 O2 Sat by Pulse 100 Oximetry ED Medical Decision Making - Medical Decision Making 57-year-old female presents with insect bite on face ED course: Patient to go home on Benadryl and triamcinolone cream to apply to insect bite Mild insect bite, non-edema nonerythematous, Discussed patient follow up with primary care physician. Discussed the medication as prescribed Discussed symptoms worsen to return to ED. Vital signs are normal patient is in no acute distress. ED Disposition Clinical Impression: Insect bite Disposition: DC-01 TO HOME OR SELFCARE Is pt being admited?: No Does the pt Need Aspirin: No Condition: Stable Instructions: Insect Bite or Sting (ED) Prescriptions: diphenhydrAMINE [Benadryl CAP] 25 mg PO QHS #30 capsule Triamcinolone 0.025% (Nf) [Kenalog 0.025% OINT] 1 applic TP TID #1 tube Referrals: PRIMARY CARE,MD [Primary Care Provider] - 3-5 Days [facility] [Outside] - 3-5 Days [facility] [Outside] - 3-5 Days [facility] [Outside] - 3-5 Days Forms: Accompanied Note, Work/School Release Form(ED) Time of Disposition: 21:17 This documentation as recorded by the scribe,CORTEZ,GISELLE,accurately reflects the service I personally performed and the decisions made by me,SUJEY BEYER PA.
[2017-05-23 21:32] VITALS: BP 120/75
== END 2017-05-23 21:31 | disposition home or self-care (01) ==
LOC: ED 16:59
DX: S00.36XA Insect bite (nonvenomous) of nose, initial encounter (principal); F20.9 Schizophrenia, unspecified; F32.9 Major depressive disorder, single episode, unspecified; F17.200 Nicotine dependence, unspecified, uncomplicated; W57.XXXA Bitten or stung by nonvenomous insect and other nonvenomous arthropods, initial encounter; Y93.89 Activity, other specified; Y99.8 Other external cause status; Y92.009 Unspecified place in unspecified non-institutional (private) residence as the place of occurrence of the external cause
CPT/HCPCS: 99282

== ENCOUNTER 2017-10-23 18:31 | Emergency (ER) | payer MEDICARE ==
--- NOTE | 2017-10-24 02:21 | Emergency Department Report ---
ED General Adult HPI - General Chief complaint: Fall Stated complaint: FALL Time Seen by Provider: 10/24/17 01:00 Source: patient Mode of arrival: Wheelchair Limitations: No Limitations - History of Present Illness Initial comments: Patient is a 57-year-old female past medical history of tension nerve and back pain who presents with neck pain and lower back pain. Patient states that she slipped and fell on her tailbone on Sunday. She says since then she's been having some pain in her neck and her lower back the pain as a 4 out of 10 that he makes it worse nothing makes it better she says is an achy type of pain and she has had similar pain in her neck for the last 3 years however it seems worse tonight. Patient has no numbness no tingling no nausea or vomiting. Is a sharp electrical pain that does not radiate. - Related Data Previous Rx's Medication Instructions Recorded Last Taken Type Amoxicillin/K Clav Tab [Augmentin 875 tab PO BID #20 tablet 07/16/13 06/29/13 Rx 875MG TAB] Fluticasone Propionate [Flonase] 2 spray NS QDAY #1 spray.susp 07/16/13 Rx Hydrocodone Bit/Acetaminophen 1 each PO Q6HR #15 tablet 07/16/13 06/29/13 Rx [Lortab 5-500 Tablet] Loratadine [Claritin] 10 mg PO DAILY #30 tablet 07/16/13 06/29/13 Rx Prednisone 40 mg PO QDAY #10 tablet 07/16/13 06/29/13 Rx Azithromycin [Zithromax Z-PENNIE] 250 mg PO DAILY #6 tablet 01/19/14 Unknown Rx HYDROcodone/APAP 5-325 [Bridgeton 1 each PO Q6HR PRN #10 tablet 01/19/14 Unknown Rx 5-325 mg TAB] HYDROcodone/APAP 5-325 [Bridgeton 1 each PO Q6HR PRN #20 tablet 03/26/14 Unknown Rx 5-325 mg TAB] Sulfamethoxazole/Trimethoprim 1 each PO BID #10 tablet 08/23/16 Unknown Rx [Bactrim DS TAB] traMADol [Ultram 50 MG tab] 50 mg PO Q6HR PRN #14 tablet 08/23/16 Unknown Rx metroNIDAZOLE [Metrogel 1%] 1 applicatio TP QDAY #60 gel..gram. 04/28/17 Unknown Rx traMADol [Ultram] 50 mg PO Q6HR PRN #10 tablet 04/28/17 Unknown Rx Triamcinolone 0.025% (Nf) [Kenalog 1 applic TP TID #1 tube 05/23/17 Unknown Rx 0.025% OINT] diphenhydrAMINE [Benadryl CAP] 25 mg PO QHS #30 capsule 05/23/17 Unknown Rx Diclofenac Sodium [Voltaren] 100 gm TP Q6H #1 gel..gram. 10/24/17 Unknown Rx Lidocaine [Lidoderm] 1 each TP Q24HR PRN #12 adh..patch 10/24/17 Unknown Rx Allergies Allergy/AdvReac Type Severity Reaction Status Date / Time No Known Allergies Allergy Verified 10/23/17 18:40 ED Review of Systems ROS: Stated complaint: FALL Other details as noted in HPI Constitutional: denies: chills, fever Eyes: denies: eye pain, eye discharge, vision change ENT: denies: ear pain, throat pain Respiratory: denies: cough, shortness of breath, wheezing Cardiovascular: denies: chest pain, palpitations Endocrine: no symptoms reported Gastrointestinal: denies: abdominal pain, nausea, diarrhea Genitourinary: denies: urgency, dysuria, discharge Musculoskeletal: back pain. denies: joint swelling, arthralgia Skin: denies: rash, lesions Neurological: denies: headache, weakness, paresthesias Psychiatric: denies: anxiety, depression Hematological/Lymphatic: denies: easy bleeding, easy bruising ED Past Medical Hx - Past Medical History Hx Congestive Heart Failure: No Hx Diabetes: No Hx Psychiatric Treatment: Yes Hx Asthma: No Hx COPD: No Additional medical history: PTSD. depression. schizophrenia. UTI - Surgical History Additional Surgical History: colon biospy, laser eye surgery. ectopic - Social History Smoking Status: Current Every Day Smoker Substance Use Type: Alcohol - Medications Home Medications: Home Medications Medication Instructions Recorded Confirmed Last Taken Type Amoxicillin/K Clav Tab [Augmentin 875 tab PO BID #20 tablet 07/16/13 01/19/14 Rx 875MG TAB] Fluticasone Propionate [Flonase] 2 spray NS QDAY #1 spray.susp 07/16/1306/29/13 Rx Hydrocodone Bit/Acetaminophen 1 each PO Q6HR #15 tablet 07/16/13 01/19/14 Rx [Lortab 5-500 Tablet] Loratadine [Claritin] 10 mg PO DAILY #30 tablet 07/16/13 01/19/14 06/29/13 Rx Prednisone 40 mg PO QDAY #10 tablet 07/16/13 01/19/14 06/29/13 Rx Azithromycin [Zithromax Z-PENNIE] 250 mg PO DAILY #6 tablet 01/19/14 Unknown Rx HYDROcodone/APAP 5-325 [Bridgeton 1 each PO Q6HR PRN #10 tablet 01/19/14 Unknown Rx 5-325 mg TAB] HYDROcodone/APAP 5-325 [Bridgeton 1 each PO Q6HR PRN #20 tablet 03/26/14 Unknown Rx 5-325 mg TAB] Sulfamethoxazole/Trimethoprim 1 each PO BID #10 tablet 08/23/16 Unknown Rx [Bactrim DS TAB] traMADol [Ultram 50 MG tab] 50 mg PO Q6HR PRN #14 tablet 08/23/16 Unknown Rx metroNIDAZOLE [Metrogel 1%] 1 applicatio TP QDAY #60 gel..gram. 04/28/17 Unknown Rx traMADol [Ultram] 50 mg PO Q6HR PRN #10 tablet 04/28/17 Unknown Rx Triamcinolone 0.025% (Nf) [Kenalog 1 applic TP TID #1 tube 05/23/17 Unknown Rx 0.025% OINT] diphenhydrAMINE [Benadryl CAP] 25 mg PO QHS #30 capsule 05/23/17 Unknown Rx Diclofenac Sodium [Voltaren] 100 gm TP Q6H #1 gel..gram. 10/24/17 Unknown Rx Lidocaine [Lidoderm] 1 each TP Q24HR PRN #12 adh..patch 10/24/17 Unknown Rx ED Physical Exam - General Limitations: No Limitations General appearance: alert, in no apparent distress - Head Head exam: Present: atraumatic, normocephalic - Eye Eye exam: Present: normal appearance - ENT ENT exam: Present: mucous membranes moist - Neck Neck exam: Present: tenderness (paraspinal tenderness ) - Respiratory Respiratory exam: Present: normal lung sounds bilaterally. Absent: respiratory distress - Cardiovascular Cardiovascular Exam: Present: regular rate, normal rhythm. Absent: systolic murmur, diastolic murmur, rubs, gallop - GI/Abdominal GI/Abdominal exam: Present: soft, normal bowel sounds - Extremities Exam Extremities exam: Present: normal inspection - Back Exam Back exam: Present: normal inspection - Neurological Exam Neurological exam: Present: alert, oriented X3 - Psychiatric Psychiatric exam: Present: normal affect, normal mood - Skin Skin exam: Present: warm, dry, intact, normal color. Absent: rash ED Course Vital Signs 10/23/17 10/24/17 10/24/17 18:40 02:38 02:40 Temperature 98.8 F Pulse Rate 87 Respiratory 16 18 18 Rate Blood Pressure 126/83 O2 Sat by Pulse 99 Oximetry ED Medical Decision Making - Medical Decision Making Chief Medical diagnosis: Pinched nerve Differential medical diagnosis: Lumbar sacral strain, herniated disc Patient's pain seems to be exacerbation of her chronic pain PATIENT Tylenol and Motrin and I'll also give patient follow-up instructions with a PCP as well as Voltaren cream and lidoderm patches discussed plan with patient and patient agrees with plan. Pt has unremarkable physical exam and would not benefit from imaging studies. Critical care attestation.: If time is entered above; I have spent that time in minutes in the direct care of this critically ill patient, excluding procedure time. ED Disposition Clinical Impression: Cervicalgia, Pinched nerve Disposition: [id number]-01 TO HOME OR SELFCARE Is pt being admited?: No Does the pt Need Aspirin: No Condition: Stable Instructions: Cervical Sprain (ED) Prescriptions: Diclofenac Sodium [Voltaren] 100 gm TP Q6H #1 gel..gram. Lidocaine [Lidoderm] 1 each TP Q24HR PRN #12 adh..patch PRN Reason: Pain Referrals: VICKY MONREAL MD [Primary Care Provider] - 3-5 Days
[2017-10-24] MEDS ORDERED: TYLENOL PO ONE (02:22)
[2017-10-24] MEDS ORDERED: MOTRIN PO ONE (02:22)
[2017-10-24 02:45] VITALS: BP 128/77
== END 2017-10-24 02:45 | disposition home or self-care (01) ==
LOC: ED 18:31
DX: M54.2 Cervicalgia (principal); M54.5 Low back pain; G58.9 Mononeuropathy, unspecified; F43.10 Post-traumatic stress disorder, unspecified; F32.9 Major depressive disorder, single episode, unspecified; F20.9 Schizophrenia, unspecified; F17.200 Nicotine dependence, unspecified, uncomplicated
CPT/HCPCS: 99282